=== PATIENT | female | born 1990 | race Caucasian/White ===

== ENCOUNTER 2016-05-26 21:24 | Emergency (ER) | payer SELFPAY ==
[~2016-05-26] VITALS: Ht 160 cm; Wt 49.9 kg
[2016-05-26 21:35] VITALS: BP 127/83
--- NOTE | 2016-05-26 21:44 | Emergency Room Report ---
History of Present Illness General Chief Complaint: Lower Back Pain or Injury Source: Patient Present Illness HPI Patient presents with left lower back pain. Started last night at 9 PM. It was fairly severe at that time. She's taken some Tylenol now the pain is 5/10. It doesn't radiate. She has a history of pyelonephritis on that side. She has no dysuria. When she had pyelo she has no dysuria that time either. She denies any fevers or chills. There is no nausea vomiting diarrhea shortness of breath chest pain. Denies any weakness in her lower extremities and no tingling. Person she is with is concerned about pyelo. Allergies: Coded Allergies: No Known Allergies (Unverified , 05/26/16) Patient History Past Medical History: see triage record Social History Narrative with [facility] resident Last Menstrual Period: 05/18/16 Now: No Reviewed Nursing Documentation: PMH: Agreed, PSxH: Agreed Review of Systems All Other Systems: negative except mentioned in HPI Physical Exam Vital Signs Date Time Temp Pulse Resp B/P Pulse Ox O2 Delivery O2 Flow Rate FiO2 05/26/16 21:26 98.2 62 17 125/82 100 Room Air Sp02 EP Interpretation: reviewed, normal General Appearance: well appearing, no apparent distress Head: normocephalic, atraumatic ENT: hearing grossly normal, normal voice Neck: full range of motion, supple Respiratory: no respiratory distress, speaking full sentences Gastrointestinal: normal bowel sounds, non tender, soft, no mass Genitourinary: CVA tenderness (L) Musculoskeletal: digits/nails normal, gait/station normal, normal range of motion, other - some discomfort moving her back on L side Neurologic: alert, normal gait, grossly normal Psychiatric: mood/affect normal Skin: no rash Medical Decision Making Diagnostic Impression: Primary Impression: Flank pain ER Course Patient presents with flank pain with prior h/o pyelo. Ddx: pyelo, UTI, strain , stone, spams amongst others. Evaluation with urinalysis. Patient treated with motrin. UA clear. Improved with treatment. Patient stable for outpatient observation and treatment. Laboratory Tests Test 05/26/16 21:45 Urine Color Pale yellow Urine Appearance Clear Urine pH 6 (4.5-8.0) Urine Specific Mathias 1.010 (1.005-1.035) Urine Protein Negative (NEGATIVE) Urine Glucose (UA) Negative (NEGATIVE) Urine Ketones Negative (NEGATIVE) Urine Occult Blood Negative (NEGATIVE) Urine Nitrite Negative (NEGATIVE) Urine Bilirubin Negative (NEGATIVE) Urine Urobilinogen Normal MG/DL (0.0-1.0) Urine Leukocyte Esterase 1+ (NEGATIVE) H Urine RBC 0-2 /HPF (0 - 2) Urine WBC 2-4 /HPF (0 - 2) Urine Squamous Epithelial Cells None /LPF (NONE/OCC) Urine Bacteria Few /HPF (NONE) Urine HCG, Qualitative Negative Last Vital Signs Date Time Temp Pulse Resp B/P Pulse Ox O2 Delivery O2 Flow Rate FiO2 05/26/16 23:00 98.2 80 17 130/84 100 Room Air Status: improved Disposition: HOME, SELF-CARE Condition: Improved Scripts Methocarbamol* (ROBAXIN*) 500 Mg Tablet 500 MG PO TID Y for muscle spasms, #12 TAB 0 Refills Prov: Shayne Wolf M.D. 05/26/16 Ibuprofen* (MOTRIN*) 600 Mg Tablet 600 MG ORAL Q6H Y for For Pain, #20 TAB Prov: Shayne Wolf M.D. 05/26/16 Shayne Wolf M.D. May 26, 2016 21:44
[2016-05-26 22:12] LABS: APPEARANCE,URINE CLEAR; KETONES,URINE NEGATIVE (NEGATIVE); LEUKOCYTE ESTERASE ,URINE 1+ (NEGATIVE); NITRITE,URINE NEGATIVE (NEGATIVE); PH,URINE 6 (4.5-8.0); PROTEIN,URINE NEGATIVE (NEGATIVE); UROBILINOGEN,URINE NORMAL MG/DL (0.0-1.0)
[2016-05-26 22:23] LABS: BACTERIA,URINE FEW /HPF; RBC,URINE 0-2 /HPF (0 - 2)
[2016-05-26] MEDS ORDERED: IBUPROFEN600 MG ORAL (22:55)
[2016-05-26] MEDS ORDERED: ROBAXIN500 MG PO (22:55)
[2016-05-26 23:00] VITALS: BP 130/84
== END 2016-05-26 23:15 | disposition home or self-care (01) ==
LOC: EMR 23:15
DX: R10.9 Unspecified abdominal pain (principal)
CPT/HCPCS: 81003; 81025; 99282